=== PATIENT | female | born 1945 | race Caucasian/White ===

== ENCOUNTER 2019-07-28 14:41 | Outpatient (CLI) | payer MEDICARE, OTHER, SELFPAY ==
--- NOTE | 2019-07-28 14:50 | MR_ITS ---
WS: [id number] MRI RIGHT SHOULDER NONCONTRAST TECHNIQUE: Sagittal T2, coronal T1, T2 and proton density imaging. Axial gradient PDE imaging. CLINICAL INFORMATION: SPRAIN OF OTHER PART OF RT SHOULDER COMPARISON: None. FINDINGS: Exam significantly limited due to motion artifact. Moderate degenerative arthritis at the AC joint with downsloping of the acromion. Fluid and edema rig ht AC joint with a small amount of subacromial subdeltoid fluid. Rotator cuff arthropathy. Near compl ete loss of the subacromial space. Chronic thinning and atrophy of the distal supraspinatus. Chronic thinning with partial tear of the supraspinatus distally. Intrasubstance tear at the supraspinatus mu sculotendinous junction with some retraction. Chronic atrophy of the supraspinatus muscle belly. Tend inopathy in the supraspinatus. Chronic appearing atrophy involving the infraspinatus with intact fibers visualized distally. Normal teres minor. Diffuse edema involving the subscapularis with chronic appearing full-thickness tear dis tally. Dislocation of the biceps tendon medial to the bicipital groove. Chronic appearing atrophy of the long head of the biceps tendon. Biceps labral complex appears grossly intact. Degenerative frayin g of the glenoid labrum. MR/MR shoulder RT wo con* [id number] IMPRESSION: 1. Exam limited due to motion artifact. 2. Moderate degenerative arthritis at the AC joint with mild downsloping of th e acromion with loss of the subacromial space. 3. Chronic thinning with complete or near complete tear of the supraspinatus d istally with some tendon retraction. Chronic appearing atrophy of the supra and infraspinatus muscle bellies. 4. Chronic appearing complete tear of the subscapularis tendon distally with d islocation of the biceps tendon medial to the bicipital groove. Chronic atrophy long head of the biceps tendon. 5. Biceps labral complex appears grossly intact.
== END 2019-07-28 14:42 | disposition home or self-care (01) ==
LOC: RADWPI 14:45
PROVIDERS: Family Provider Nurse Practitioner Family; PCP Physician Assistant Medical; Referring Provider Physician Assistant Medical; Visit Provider Orthopaedic Surgery
DX: S43.491A Other sprain of right shoulder joint, initial encounter (principal); X58.XXXA Exposure to other specified factors, initial encounter; M19.011 Primary osteoarthritis, right shoulder; M75.121 Complete rotator cuff tear or rupture of right shoulder, not specified as traumatic
CPT/HCPCS: 73221

== ENCOUNTER 2019-08-20 08:13 | Day surgery (SDC) | payer MEDICARE, OTHER, SELFPAY ==
[2019-08-19 14:57] VITALS: BMI 30.9
[2019-08-20] VITALS (8 sets, daily range): BP systolic 128–143; BP diastolic 56–82; PULSE 56–78; RESP 16–18; TEMP 36.2–36.4; O2SAT 97–99
[2019-08-20] MEDS: sodium chloride 0.9% 1,000 ML 30 ML IV (09:25)
--- NOTE | 2019-08-20 09:49 | ANES.PREANES ---
Pre-Anesthetic Assessment Pre-Anesthetic Assessment: Height/Weight: Height 1.6 m Weight 79.379 kg Temp Pulse Resp BP Pulse Ox 97.1 F L 78 18 135/60 99 08/20/19 09:04 08/20/19 09:04 08/20/19 09:04 08/20/19 09:04 08/20/19 09:04 Preop Diagnosis: Right rotator cuff tear Proposed Procedure: Operation Date: 08/20/19 10:25 Proposed Procedures p Right Shoulder Arthroscopy w/ Rotator Cuff Repair and subacromial decompression [id number] s46.011a s46.111a(Right) - Armando Valdez MD Familial anesthetic complications: None Was Beta Joshua taken within 24 hours: N/A Last intake: Intake Last Liquid Date 08/20/19 Last Liquid Time 06:30 Last Solid Date 08/19/19 Last Solid Time 18:00 Social: Social History: No alcohol and No tobacco Exam: Pre-Anes Outpt Exam: alert, oriented x 3, clear to auscultation bilaterally and regular rate & rhythm Airway: Cervical ROM: Other (painful due to arm right now) MP: 2 Dentition: False Pulmonary: Pulmonary: None reported CV/HEM: CV/HEM: HTN : : None reported Hepatic: Hepatic: None reported GI: GI: GERD Metabolic: Metabolic: Morbid obesity and Thyroid Musc/skel: Musc/skel: None reported Neuropsych: Neuropsych: None reported Anesthetic Plan: ASA status: II Anesthesia: General and Regional (specify below) (interscalne) Meds/Allergies Current Medications: Current Medications Generic Name Dose Route Start Last Admin Trade Name Freq PRN Reason Stop Dose Admin Sodium Chloride 1,000 mls @ 30 ml s/hr 08/20/19 09:00 08/20/19 09:25 Sodium Chloride 0.9% IV 08/21/19 08:59 30 mls/hr .Q24H EDDIE Administration Data Anesthesia Cardiac Studies: No Data to Display
[2019-08-20 10:26] LABS: Basophils % 0.3 %; Eosinophils # 0.1 10^3/uL (0.0-0.8); Eosinophils % 1.3 %; Hematocrit 49.5 % (37.0-47.0); Hemoglobin 15.7 g/dL (11.5-15.3); Lymphocytes # 1.7 10^3/uL (0.8-4.8); Lymphocytes % 28.1 %; Mean Corpuscular HGB Conc 31.7 g/dL (30.0-36.0); Mean Corpuscular Hemoglobin 29.6 pg (28.0-34.0); Mean Corpuscular Volume 93.4 fL (81-99); Mean Platelet Volume 10.9 fL (7.4-10.4); Monocytes # 0.5 10^3/uL (0.2-0.9); Monocytes % 7.6 %; Neutrophils # 3.9 10^3/uL (1.8-7.7); Neutrophils % 62.5 %; Nucleated Red Blood Cells % 0 %; Platelet Count 191 10^3/cmm (130-400); Red Cell Distribution Width 13.3 % (12.1-15.1); White Blood Count 6.2 10^3/uL (4.0-10.0)
[2019-08-20] MEDS: midazolam 1 mg/mL INJ 5 ML 5 MG IVP (10:50)
[2019-08-20 11:02] LABS: Anion Gap 13.1 (5-19); Blood Urea Nitrogen 17 mg/dL (8-23); Calcium 10.1 mg/dL (8.5-10.5); Carbon Dioxide 27 mmol/L (22-29); Chloride 105 mmol/L (98-107); Glucose 105 mg/dL (74-106); Osmolality Calculated 289 mOsm/kg (285-295); Potassium 4.1 mmol/L (3.5-5.1); Sodium 141 mmol/L (136-145)
--- NOTE | 2019-08-20 11:07 | ANES.PROC ---
Anesthesia Procedures Procedure/Date: 08/20/19 Nerve Block ^: Nerve Block 1: Main Anesthesia: general anesthesia Time Out Performed: Yes Consent: requested by attending/covering physician, from patient, risks and benefits reviewed and patient agrees to proceed Nerve block location: interscalene (R) Anesthesia monitors applied: pulse oximetry, BP cuff and oxygen Nerve block position: semi sitting Anesthetic Used: ropivicaine 0.5% (20) and with decadron (4 mg) Ultrasound used to: recognize landmarks and visualize and ID interscalene groove Nerve Stimulator Used?: No Interscalene/Femoral BLK: 2 stimuplex 22 g needle used for position and inplane approach Injection: neg aspiration of heme Patient Tolerated Procedure: well and no complications Complications: none
--- NOTE | 2019-08-20 12:04 | PM.HPUD ---
H&P update H&P Update: DATE OF SURGERY/PROCEDURE: 08/20/19 DATE H&P PERFORMED: 08/05/19 H&P UPDATE INFORMATION: H&P completed within last 30 days and No changes to prior documentation PREOP DIAGNOSIS: Right rotator cuff tear PRIMARY INDICATION FOR PROCEDURE: Pain and weakness after a fall with MRI evidence of tearing of the rotator cuff PLANNED PROCEDURE: Operation Date: 08/20/19 10:25 Proposed Procedures p Right Shoulder Arthroscopy w/ Rotator Cuff Repair and subacromial decompression [id number] s46.011a s46.111a(Right) - Armando Valdez MD Full H&P Medications/Allergies: Current Medications: Current Medications Generic Name Dose Route Start Last Admin Trade Name Freq PRN Reason Stop Dose Admin Sodium Chloride 1,000 mls @ 30 ml s/hr 08/20/19 09:00 08/20/19 09:25 Sodium Chloride 0.9% IV 08/21/19 08:59 30 mls/hr .Q24H EDDIE Administration
--- NOTE | 2019-08-20 15:44 | P.OP_ITS ---
Operative Report Date of procedure: 08/20/19 Pre-op Diagnosis: Right rotator cuff tear Post-op diagnosis: other Post-op Diagnosis: Massive tear right rotator cuff, dislocation right biceps, impingement Post-op Findings: The patient had a large tear of the rotator cuff involving the superior 30% of the subscapularis with dislocation of the biceps of the supraspinatus and the leading edge of the infraspinatus. He had prominent subacromial spurring. No degenerative changes were identified of the glenohumeral joint. Procedure Done: Arthroscopic repair right rotator cuff with bio inductive implant, arthroscopic right subacromial decompression, open subpectoral biceps tenodesis. Pathology: none sent Anesthesia: General and Nerve Block (Interscalene) Estimated blood loss (mL): 20 Complications: None Findings: Patient had a large tear of the rotator cuff involving a retracted tear of the upper third of the subscapularis. She had a tear of her supraspinatus and leading into the infraspinatus nearly to the level of the glenoid. Her biceps tendon was dislocated anteriorly. She had prominent subacromial spurring. Condition: stable Disposition: PACU Procedure: The patient was taken to the operating room after she was given an interscalene block. She was given 2 g of Ancef and positioned, prepped and draped in the lateral position with her right shoulder in 10 and later 15 pounds of traction. A timeout was performed. Shoulder was initially entered through a posterior portal and the glenohumeral joint was entered revealing a very large rotator cuff tear. Additional anterior and anterior lateral portal were made for working portals. Initial attention was focused on bursal tissue in the subacromial space. A Don[employer]ue [employer] Werewolf probe was used to remove bursal tissue. The leading edge of the acromion was outlined. A 5.5 mm acromionizer was used to remove approximately 4 mm of anterior and inferior acromion. Attention was then focused on the rotator cuff in particular the subscapularis. Biceps tendon was seen clearly dislocated across the subscapularis tear. The [employer] Werewolf probe was used to release the biceps from its insertion on the superior labrum for later tenodesis. Section was then accomplished mobilizing the subscapularis. The coracoid was skeletonized adhesions are released from beneath the coracoid. Articular aspect of the subscapularis was mobilized from the anterior glenoid. At the conclusion of debridement the superior corner could be retracted back to its insertion on the lesser tuberosity. An acromion was used to debride the previous footprint of the rotator cuff. Through the anterior portal a 5.5 mm helical anchor was in place. Sutures retracted through the anterior lateral portal and a [employer] first pass suture passer used to shuttle the 2 ultra tape sutures through the leading edge of the subscap approximately 1 cm apart in 8 mm from the tendon edge. A Ultrabraid suture was passed to the central and slightly more medial position. The Ultratape and then the Ultrabraid suture where tied bringing the subscapularis back superiorly and laterally in a modified Canela type of stitch. Attention was then focused on the supraspinatus and infraspinatus. 2 helical L5 0.5 mm anchors were placed in the central debrided footprint, one 1 cm posterior to the subscapularis anchor and a second 1 cm posterior to that. Sutures were passed and identified, modified Canela fashion drawing the rotator cuff down to debrided trough of bone. A slightly more anterior and inferior portal was made. A Donohue [employer] Nephew Regeneten implant was then passed over the repair. It was fixed medially anteriorly and posteriorly with soft tissue lucía and laterally with 2 bone lucía laying over the repair suture line and suture line. Next a small anterior axillary incision was made approximately 3 cm long and dissection was carried down bluntly to the swollen shoulder and into the deltoid to the bicipital groove. The biceps tendon was identified and retracted into the wound. A Q fix anchor was placed in the bone and the sutures passed around the tendon in a luggage tag locking fashion. A second free Ethibond was suture to suture the tendon to the proximal soft tissues. Approximately 3 cm of tendon were divided from scissors. The anterior biceps tenodesis incision was closed with closed with deep 0 Vicryl in a subcutaneous 2-0 Vicryl. And a stable. Portals were closed with interrupted Prolene sutures. Sterile dressings were applied. The patient was placed in an abduction pillow, extubated, and taken to recovery room in stable condition.
--- NOTE | 2019-08-20 16:04 | SUR.PHASEI ---
1546- RECEIVED PATIENT IN PACU FROM OR VIA [facility]. RESP ARE EVEN AND NONLABORED. SIMPLE MASK APPLIED AT 6LPM, SAT 98%. LUE IS WARM TO TOUCH WITH CAP REFILL <3 SECONDS. DRESSING DRY AND INTACT WITH IMMOBILIZER IN PLACE. NO S/S PAIN OR NAUSEA
== END 2019-08-20 17:25 | disposition home or self-care (01) ==
PROVIDERS: Family Provider Nurse Practitioner Family; PCP Physician Assistant Medical; Visit Provider Orthopaedic Surgery
PROC: (CPT 29805; principal; 2019-08-20 10:25)
DX: M75.101 Unspecified rotator cuff tear or rupture of right shoulder, not specified as traumatic (principal); M25.811 Other specified joint disorders, right shoulder; I10 Essential (primary) hypertension; K21.9 Gastro-esophageal reflux disease without esophagitis; E66.01 Morbid (severe) obesity due to excess calories; Z68.31 Body mass index [BMI] 31.0-31.9, adult
CPT/HCPCS: 29826; 29827; 29828; 12345; 36415; 80048; 85025; 96374; C1713; J0690; J1100; J2001; J2250; J2704; J2795; J3010; J3490; J7030

== ENCOUNTER 2019-09-29 06:00 | Outpatient (RCR) | payer MEDICARE, OTHER, SELFPAY | END 2019-10-21 23:59 | disposition home or self-care (01) | LOC: WPT 06:00 | PROVIDERS: Family Provider Nurse Practitioner Family; PCP Physician Assistant Medical; Referring Provider Orthopaedic Surgery; Visit Provider Orthopaedic Surgery | DX: Z47.89 Encounter for other orthopedic aftercare (principal) | CPT/HCPCS: 97110; 97112; 97150; 97162 ==

== ENCOUNTER 2019-10-22 06:00 | Outpatient (RCR) | payer MEDICARE, OTHER, SELFPAY | END 2019-11-20 23:59 | disposition home or self-care (01) | LOC: WPT 06:00 | PROVIDERS: Family Provider Nurse Practitioner Family; PCP Physician Assistant Medical; Referring Provider Orthopaedic Surgery; Visit Provider Orthopaedic Surgery | DX: Z47.89 Encounter for other orthopedic aftercare (principal); S46.011D Strain of muscle(s) and tendon(s) of the rotator cuff of right shoulder, subsequent encounter | CPT/HCPCS: 97110; 97164 ==

== ENCOUNTER 2019-11-21 06:00 | Outpatient (RCR) | payer MEDICARE, OTHER, SELFPAY | END 2019-12-21 23:59 | disposition home or self-care (01) | LOC: WPT 06:00 | PROVIDERS: PCP Physician Assistant Medical; Referring Provider Orthopaedic Surgery; Visit Provider Orthopaedic Surgery | DX: Z47.89 Encounter for other orthopedic aftercare (principal); Z98.890 Other specified postprocedural states | CPT/HCPCS: 97110; 97112; 97140 ==

== ENCOUNTER 2019-12-22 06:00 | Outpatient (RCR) | payer MEDICARE, OTHER, SELFPAY | END 2020-01-20 23:59 | disposition home or self-care (01) | LOC: WPT 06:00 | PROVIDERS: PCP Physician Assistant Medical; Visit Provider Orthopaedic Surgery | DX: Z47.89 Encounter for other orthopedic aftercare (principal); Z98.890 Other specified postprocedural states | CPT/HCPCS: 97110; 97140; 97150; 97530 ==

== ENCOUNTER → 2022-07-19 13:09 | Outpatient (BNVA) | payer MEDICARE, OTHER, SELFPAY | PROVIDERS: PCP Physician Assistant Medical; Visit Provider Specialist | DX: M25.512 Pain in left shoulder (principal); M19.012 Primary osteoarthritis, left shoulder; Z96.611 Presence of right artificial shoulder joint | CPT/HCPCS: 20610; 73030; 99204; J1100; J2795; J3301 ==

== ENCOUNTER → 2022-12-04 12:49 | Outpatient (BNVA) | payer MEDICARE, OTHER, SELFPAY | PROVIDERS: PCP Physician Assistant Medical; Visit Provider Specialist | DX: M19.012 Primary osteoarthritis, left shoulder (principal) | CPT/HCPCS: 99214 ==

== ENCOUNTER 2023-01-05 11:16 | Outpatient (CLI) | payer MEDICARE, OTHER, SELFPAY ==
--- NOTE | 2023-01-05 | MR_ITS ---
WS: [id number] MRI LEFT SHOULDER NONCONTRAST TECHNIQUE: Sagittal T2, coronal T1, T2 and proton density imaging. Axial gradient PDE imaging. CLINICAL INFORMATION: pain radiating down left arm COMPARISON: None. FINDINGS: Moderate degenerative arthritis LEFT AC joint. Moderate downsloping of the acromion subacromial spurr ing. Impingement on the distal supraspinatus. Small amount of subacromial subdeltoid fluid. Narrowing of the subacromial space. Tendinopathy in the distal supraspinatus. Small insertional tear distal supraspinatus. No tendon retr action. Normal infraspinatus. Normal teres minor. Chronic thinning of the subscapularis tendon distal ly likely due to chronic tear. Medial subluxation of the biceps tendon at the bicipital groove. Incre ased T2 signal abnormality with partial intrasubstance tear involving the proximal biceps tendon exte nding into the adjacent proximal intra-articular biceps tendon. Otherwise Intra-articular biceps tend on appears intact. Moderate degenerative narrowing at the glenohumeral articulation. MR/MR shoulder LT wo con* [id number] IMPRESSION: 1. Moderate degenerative arthritis AC joint with downsloping acromion with imp ingement on the distal supraspinatus. Fluid and edema in the AC joint. 2. Narrowing of the subacromial space with tendinopathy and a small insertiona l tear distally. No tendon retraction. 3. Infraspinatus and teres minor are normal. 4. Chronic thinning of the subscapularis with chronic appearing distal atrophy likely due to chronic tear 5. Medial subluxation of the biceps tendon from the bicipital groove with int rasubstance tear extending into the proximal intra-articular biceps tendon. 6. Intra-articular biceps tendon otherwise appears intact.
== END 2023-01-05 11:17 | disposition home or self-care (01) ==
LOC: RAD 11:22
PROVIDERS: PCP Physician Assistant Medical; Visit Provider Specialist
DX: M19.012 Primary osteoarthritis, left shoulder (principal)
CPT/HCPCS: 73221

== ENCOUNTER → 2023-01-15 14:55 | Outpatient (BNVA) | payer MEDICARE, OTHER, SELFPAY | PROVIDERS: PCP Physician Assistant Medical; Visit Provider Specialist | DX: M75.42 Impingement syndrome of left shoulder (principal); M19.012 Primary osteoarthritis, left shoulder | CPT/HCPCS: 99214 ==

== ENCOUNTER 2023-02-02 09:56 | Day surgery (SDC) | payer MEDICARE, OTHER, SELFPAY ==
[2023-02-02 10:31] VITALS: BP 137/82; PULSE 71; RESP 16; TEMP 36.3; O2SAT 99
[2023-02-02] MEDS: gabapentin 300 mg Capsule PO (10:55)
[2023-02-02] MEDS: acetaminophen 1,000 MG/100 ML PIGGYBACK 400 MG IV (10:55)
[2023-02-02] MEDS: sodium chloride 0.9% 1,000 ML 30 ML IV (10:56)
[2023-02-02 11:05] LABS: Basophils % 0.2 %; Eosinophils # 0.1 10^3/uL (0.0-0.8); Eosinophils % 1.4 %; Hematocrit 28.5 % (37.0-47.0); Hemoglobin 8.7 g/dL (11.5-15.3); Lymphocytes # 1.3 10^3/uL (0.8-4.8); Lymphocytes % 25.4 %; Mean Corpuscular HGB Conc 30.5 g/dL (30.0-36.0); Mean Corpuscular Hemoglobin 30.6 pg (28.0-34.0); Mean Corpuscular Volume 100.4 fl (81-99); Mean Platelet Volume 9.7 fL (7.4-10.4); Monocytes # 0.3 10^3/uL (0.2-0.9); Monocytes % 6.2 %; Neutrophils # 3.31 10^3/uL (1.8-7.7); Neutrophils % 66.6 %; Nucleated Red Blood Cells % 0 %; Platelet Count 94 10^3/cmm (130-400); Red Blood Count 2.84 10^6/uL (4.1-5.3); Red Cell Distribution Width 13.2 % (12.1-15.1)
--- NOTE | 2023-02-02 11:12 | W.PM.OPSUD ---
Surgery/Procedure H&P Update DATE OF PROCEDURE: February 02, 2023 DATE H&P PERFORMED: 01/15/23 H&P UPDATE INFORMATION: I have reviewed H&P completed within last 30 days, I have examined patient prior to procedure, No changes to prior documentation and H&P is in [facility] EMR on date indicated PRIMARY INDICATION FOR PROCEDURE: MRI was obtained at [facility] on January 05, 2023.? This was a noncontrast MRI of the left shoulder read by Dr. Whitlock.? Findings on this study include moderate degenerative arthritis of the left acromioclavicular joint with moderate downsloping of the acromion and subacromial spurring.? There is impingement on the distal supraspinatus with a small amount of subacromial/subdeltoid fluid.? There is narrowing of the subacromial space as well.? There is tendinopathy in the distal supraspinatus tendon with a small distal supraspinatus insertional tendon tear, but there is no tendon retraction.? The infraspinatus and teres minor are normal, and there is chronic thinning of the subscapularis tendon distally likely secondary to chronic tear.? There is medial subluxation of the biceps tendon at the bicipital groove with partial intrasubstance tear involving the proximal biceps tendon, but the intra-articular sections is intact.? There is moderate narrowing at the glenohumeral joint in addition to the moderate degenerative osteoarthritic change at the acromioclavicular joint. PLANNED PROCEDURE: Operation Date: 02/02/23 12:25 Proposed Procedures p : LEFT SHOULDER OPEN ACROMIOPLASTY WITH DISTAL CLAVICLE RESECTION AND POSSIBLE ROTATOR CUFF REPAIR. 19556 50059 ,M75.100 M19.019(Left) - Tyesha Aly MD s Distal Clavicle Resection(Left) - Tyesha Aly MD s poss rotator cuff repair(Left) - Tyesha Aly MD Related Problem List Diagnoses (1) Impingement syndrome of left shoulder: (2) Arthritis of left acromioclavicular joint:
--- NOTE | 2023-02-02 11:15 | ANES.PREANE2 ---
Pre-Anesthetic Assessment Height/Weight: Height 1.63 m Weight 79.379 kg Temp Pulse Resp BP Pulse Ox O2 Del Method 97.3 F L 71 16 137/82 99 Room Air 02/02/23 10:31 02/02/23 10:31 02/02/23 10:31 02/02/23 10:31 02/02/23 10:31 02/02/23 10:35 Operation Date: 02/02/23 12:25 Proposed Procedures p : LEFT SHOULDER OPEN ACROMIOPLASTY WITH DISTAL CLAVICLE RESECTION AND POSSIBLE ROTATOR CUFF REPAIR. 41252 13844 ,M75.100 M19.019(Left) - Tyesha Aly MD s Distal Clavicle Resection(Left) - Tyesha Aly MD s poss rotator cuff repair(Left) - Tyesha Aly MD Familial anesthetic complications: None Last intake: Intake Last Liquid Date 02/01/23 Last Liquid Time 23:00 Last Solid Date 02/01/23 Last Solid Time 19:00 Social No alcohol and No tobacco Exam alert, oriented x 3, clear to auscultation bilaterally and regular rate & rhythm Airway Mallampati: Class II Dentition: false CV/HEM Hypertension Metabolic Thyroid Disease Anesthetic Plan ASA status: 2 Anesthesia: General and Regional (specify below) Risk of > 500 ml blood loss (7ml/kg in children): No Medications/Allergies Home Medications Medication Instructions Recorded Confirmed Last Taken Type levothyroxine 88 mcg capsule 75 mcg PO ONCE 08/05/19 02/01/23 02/02/23 History losartan 100 mg tablet 50 mg PO DAILY 08/05/19 02/01/23 02/02/23 History azelastine 137 mcg (0.1 %) nasal 1 spray intranasal BID 09/07/21 02/01/23 02/01/23 History spray aerosol bupropion HCl 150 mg tablet,12 hr 150 mg PO QAM 09/07/21 02/01/23 02/01/23 History sustained-release (Wellbutrin SR) Allergies Allergy/AdvReac Type Severity Reaction Status Date / Time aspirin Allergy Mild ALGY-Hives Verified 02/01/23 11:16 Current Medications Generic Name Dose Route Start Last Admin Trade Name Freq PRN Reason Stop Dose Admin Sodium Chloride 1,000 mls @ 30 mls/hr 02/02/23 10:15 02/02/23 10:56 Sodium Chloride 0.9% IV 02/03/23 10:14 30 mls/hr .Q24H EDDIE Administration PFSH Anesthesia Social History Smoking and tobacco status: never smoked Data Anesthesia 02/02/23 10:55 02/02/23 10:55 Short CBC 02/02/23 Range/Units 10:55 WBC 5.0 (4.0-10.0) 10^3/uL Hgb 8.7 L (11.5-15.3) g/dL Hct 28.5 L (37.0-47.0) % MCV 100.4 H (81-99) fl Plt Count 94 L (130-400) 10^3/cmm Neut % (Auto) 66.6 % Neut # (Auto) 3.31 (1.8-7.7) 10^3/uL Cardiac Studies: No Data to Display
[2023-02-02 11:20] LABS: Anion Gap 9.4 (5-19); Blood Urea Nitrogen 13 mg/dL (8-23); Carbon Dioxide 16 mmol/L (22-29); Chloride 123 mmol/L (98-107); Glucose 53 mg/dL (65-115); Osmolality Calculated 300 mOsm/kg (285-295); Sodium 146 mmol/L (136-145)
--- NOTE | 2023-02-02 11:22 | ANES.PROC ---
Anesthesia Procedures Procedure/Date: 02/02/23 Nerve Block ^: Nerve Block 1: Main Anesthesia: general anesthesia Time Out Performed: Yes Consent: requested by attending/covering physician, from patient, from other, risks and benefits reviewed and patient agrees to proceed Nerve block location: interscalene (L) Anesthesia monitors applied: pulse oximetry, EKG, BP cuff and oxygen Nerve block position: semi sitting Anesthetic Used: ropivicaine 0.5% (20 ml) and with decadron (3 mg) Ultrasound used to: recognize landmarks, visualize and ID brachial plexus and visualize and ID interscalene groove Nerve Stimulator Used?: No Interscalene/Femoral BLK: 2 stimuplex 22 g needle used for position and inplane approach, visualize local anesthetic spread and no vascular puncture identified Injection: neg aspiration of heme Patient Tolerated Procedure: well and no complications Complications: none
[2023-02-02 11:23] LABS: Potassium 2.4 mmol/L (3.5-5.1)
[2023-02-02 11:24] LABS: Calcium 4.8 mg/dL (8.5-10.5)
--- NOTE | 2023-02-02 11:30 | ECG_ITS ---
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 Measurements Intervals [place] Rate: 67 P: 26 WA: 153 QRS: 2 QRSD: 83 T: 67 QT: 377 QTc: 400 Interpretive Statements SINUS RHYTHM NONSPECIFIC T-WAVE ABNORMALITY No previous ECG available for comparison Electronically Signed On 02-02-2023 11:32:56 CDT by Mi Croft M.D. [email or web address]
--- NOTE | 2023-02-02 11:53 | PM.MISC ---
Miscellaneous Note Note: Patient lab results reveal critical potassium and calcium. Additionally patient has new-onset anemia and thrombocytopenia, all of undetermined etiology. Patient was sent to ER to correct critical deficiencies. Shoulder placed in sling and had discussion with patient that although block was intended for postsurgical pain, it will at least provide temporary relief from her chronic pain during her admission. Patient had no further questions or concerns.
[2023-02-02 12:02] LABS: Glucose Point of Care 99 mg/dL (70-110)
--- NOTE | 2023-02-03 01:22 | PM.MISC ---
Miscellaneous Note Purpose of Documentation: Cancellation of surgery Note: Patient presented to the hospital for left shoulder surgery as noted above. Labs were drawn as ordered by anesthesia. When the labs returned, there are multiple irregularities including critical values of potassium and calcium. The patient surgical procedure was canceled and she was transported to the emergency department for further evaluation and correction of these abnormal lab values. Upon repeat laboratory there, patient was found to have normal results. After discussion with the patient, anesthesia, in the emergency room, we elected to proceed with the surgical intervention. That is included under a separate hospital encounter.
== END 2023-02-02 12:07 | disposition home or self-care (01) ==
LOC: OR 09:58
PROVIDERS: Anesthesiology; PCP Registered Nurse; Visit Provider Specialist
PROC: (CPT 23130; principal; 2023-02-02 12:15)
PROC: (CPT 23120; 2023-02-02 12:15)
DX: M75.102 Unspecified rotator cuff tear or rupture of left shoulder, not specified as traumatic (principal); M19.012 Primary osteoarthritis, left shoulder; M75.42 Impingement syndrome of left shoulder; I10 Essential (primary) hypertension; E03.9 Hypothyroidism, unspecified
CPT/HCPCS: 36415; 36416; 80048; 82962; 85025; 93005; J0131; J1100; J2371; J2405; J2704; J2795; J3010; J3490; J7030

== ENCOUNTER 2023-02-02 12:13 | Day surgery (SDC) | payer MEDICARE, OTHER, SELFPAY ==
[2023-02-02] VITALS (13 sets, daily range): BP systolic 113–138; BP diastolic 51–88; PULSE 61–80; RESP 14–18; TEMP 35.9–36.4; O2SAT 95–100
[2023-02-02 13:21] LABS: Basophils % 0.3 %; Eosinophils # 0.1 10^3/uL (0.0-0.8); Eosinophils % 1.1 %; Hemoglobin 14.5 g/dL (11.5-15.3); Lymphocytes # 1.2 10^3/uL (0.8-4.8); Lymphocytes % 16.5 %; Mean Corpuscular HGB Conc 30.9 g/dL (30.0-36.0); Mean Corpuscular Hemoglobin 30.6 pg (28.0-34.0); Mean Corpuscular Volume 99.2 fl (81-99); Mean Platelet Volume 9.8 fL (7.4-10.4); Monocytes # 0.2 10^3/uL (0.2-0.9); Monocytes % 3.2 %; Neutrophils # 5.88 10^3/uL (1.8-7.7); Neutrophils % 78.6 %; Nucleated Red Blood Cells % 0 %; Platelet Count 148 10^3/cmm (130-400); Red Blood Count 4.74 10^6/uL (4.1-5.3); Red Cell Distribution Width 13.2 % (12.1-15.1); White Blood Count 7.5 10^3/uL (4.0-10.0)
[2023-02-02 13:43] LABS: Alanine Aminotransferase 9 U/L (0-33); Albumin Level 3.9 g/dL (3.5-5.2); Alkaline Phosphatase 104 U/L (35-105); Anion Gap 14.3 (5-19); Aspartate Amino Transferase 16 U/L (0-32); Blood Urea Nitrogen 19 mg/dL (8-23); Carbon Dioxide 24 mmol/L (22-29); Chloride 105 mmol/L (98-107); Globulin 3.1 g/dL (1.3-4.6); Glucose 102 mg/dL (65-115); Osmolality Calculated 290 mOsm/kg (285-295); Potassium 4.3 mmol/L (3.5-5.1); Sodium 139 mmol/L (136-145); Total Bilirubin 0.5 mg/dL (0.15-1.2)
--- NOTE | 2023-02-02 13:54 | ED_ITS ---
HPI - Recheck/Abnormal Lab/Rx General: Chief Complaint: Recheck/Abnormal Lab/Rx Stated Complaint: low potassium Time Seen by Provider: 02/02/23 12:48 History of Present Illness: 77-year-old female presented emergency room today with abnormal labs. According to patient she was scheduled for left shoulder surgery this morning and 3 upper lab was done. Labs showed abnormal potassium and calcium and glucose level. Patient was sent to emergency room for verification and treatment. Upon present emergency room, patient appeared to be awake without any acute distress. She denies any chest pain, shortness of breath, nausea, vomiting or diarrhea. Review of Systems General: Reports: 10 or more systems reviewed and unremarkable except in HPI and below Card: Denies: chest pain, palpitations, irregular heart rhythm, swelling of feet/ankles, lightheadedness, syncope, dyspnea on exertion, orthopnea, leg pain with exertion or acrocyanosis Skin/Breast: Denies: rash, pruritus, erythema, photosensitivity, skin pain, skin tenderness, skin swelling, sores, new lesions, changing lesions, non- healing lesions, lesions, changes in skin color, jaundice or dry skin PFSH ED PFSH: Social History Smoking and tobacco status: never smoked Physical Exam Const: COMMON NORMALS: no acute distress, average body habitus, patient oriented x3, no limitations, healthy appearing, alert and well nourished Neck/C-Spine: COMMON NORMALS: no JVD Chest: COMMONS NORMALS: normal inspection of the chest, normal palpation of entire chest wall, normal inspection of the breasts and normal palpation of the breasts Breast/axilla inspection: Yes normal inspection of the breasts BREAST/AXILLA PALPATION: Yes normal palpation of the breasts Resp: COMMON NORMALS: normal respiratory effort, No retractions, No use of accessory muscles, clear to auscultation bilaterally and percussion normal AUSCULTATION: clear to auscultation bilaterally PERCUSSION: percussion normal Cardio: COMMON NORMALS: no JVD, regular rate, regular rhythm, S1 normal heart sound present, S2 normal heart sound present, No gallops present (Cardio), No clicks present (Cardio), No murmurs present (Cardio), No rub (Cardio) and Peripheral pulses 2+ throughout RATE: regular rate RHYTHM: regular rhythm HEART SOUNDS: S1 normal heart sound present and S2 normal heart sound present PERIPHERAL PULSES: Peripheral pulses 2+ throughout Extremity: COMMON NORMALS: normal to inspection, full ROM, capillary refill normal, no joint enlargement, no clubbing, cyanosis or edema, no calf tenderness and no pedal edema NARRATIVE EXTREMITY EXAM: Left shoulder/arm in sling. Pain with some mild rotation. Neuro: COMMON NORMALS: patient oriented x3 SENSORIUM/ORIENTATION: Yes alert Course Vital Signs: Vital signs: Vital Signs Pulse Rate 77 02/02/23 12:42 Respiratory Rate 16 02/02/23 12:42 Blood Pressure 121/86 02/02/23 12:42 Pulse Oximetry 100 02/02/23 12:42 Oxygen Delivery Me thod Room Air 02/02/23 12:42 MDM - Recheck/Abnormal Lab/Rx Medical Decision Making Patient was made comfortable emergency room. Lab done and I discussed the lab finding with patient. She has remained stable without any acute distress. Differential Diagnosis Likely encounter for medication refill (Electrolyte abnormalities, diarrhea, nausea vomiting) Lab Data 02/02/23 13:12 02/02/23 13:12 Laboratory Results WBC 7.5 10^3/uL (4.0-10.0) 02/02/23 13:12 RBC 4.74 10^6/uL (4.1-5.3) 02/02/23 13:12 Hgb 14.5 g/dL (11.5-15.3) D 02/02/23 13:12 Hct 47.0 % (37.0-47.0) D 02/02/23 13:12 MCV 99.2 fl (81-99) H 02/02/23 13:12 MCH 30.6 pg (28.0-34.0) 02/02/23 13:12 MCHC 30.9 g/dL (30.0-36.0) 02/02/23 13:12 RDW 13.2 % (12.1-15.1) 02/02/23 13:12 Plt Count 148 10^3/cmm (130-400) D 02/02/23 13:12 MPV 9.8 fL (7.4-10.4) 02/02/23 13:12 Neut % (Auto) 78.6 % 02/02/23 13:12 Lymph % (Auto) 16.5 % 02/02/23 13:12 [place] % (Auto) 3.2 % 02/02/23 13:12 Eos % (Auto) 1.1 % 02/02/23 13:12 Baso % (Auto) 0.3 % 02/02/23 13:12 Neut # (Auto) 5.88 10^3/uL (1.8-7.7) 02/02/23 13:12 Lymph # (Auto) 1.2 10^3/uL (0.8-4.8) 02/02/23 13:12 [place] # (Auto) 0.2 10^3/uL (0.2-0.9) 02/02/23 13:12 Eos # (Auto) 0.1 10^3/uL (0.0-0.8) 02/02/23 13:12 Baso # (Auto) 0.0 10^3/uL (0.0-0.1) 02/02/23 13:12 Nucleated RBC % (auto) 0 % 02/02/23 13:12 Nucleated RBCs # 0.0 /100WBC 02/02/23 13:12 Sodium 139 mmol/L (136-145) 02/02/23 13:12 Potassium 4.3 mmol/L (3.5-5.1) 02/02/23 13:12 Chloride 105 mmol/L (98-107) 02/02/23 13:12 Carbon Dioxide 24 mmol/L (22-29) 02/02/23 13:12 Anion Gap 14.3 (5-19) 02/02/23 13:12 BUN 19 mg/dL (8-23) 02/02/23 13:12 Creatinine 1.0 mg/dL (0.5-0.9) H 02/02/23 13:12 GFR Calculation Not Reportable 02/02/23 13:12 Glucose 102 mg/dL (65-115) 02/02/23 13:12 Calculated Osmolality 290 mOsm/kg (285-295) 02/02/23 13:12 Calcium 9.0 mg/dL (8.5-10.5) 02/02/23 13:12 Total Bilirubin 0.5 mg/dL (0.15-1.2) 02/02/23 13:12 AST 16 U/L (0-32) 02/02/23 13:12 ALT 9 U/L (0-33) 02/02/23 13:12 Alkaline Phosphatase 104 U/L (35-105) 02/02/23 13:12 Total Protein 7.0 g/dL (6.6-8.7) 02/02/23 13:12 Albumin 3.9 g/dL (3.5-5.2) 02/02/23 13:12 Globulin 3.1 g/dL (1.3-4.6) 02/02/23 13:12 Discharge Plan Discharge Patient Disposition: Home Clinical Impression: Abnormal blood electrolyte level Condition: Stable Prescriptions: No Action losartan 100 mg tablet 50 mg PO DAILY levothyroxine 88 mcg capsule 75 mcg PO ONCE bupropion HCl [Wellbutrin SR] 150 mg tablet sustained-release 12 hr 150 mg PO QAM azelastine 137 mcg (0.1 %) aerosol,spray 1 spray intranasal BID Rx Instructions: administer into each nostril Discharge Orders: Discharge ED (Routine); Ordered 02/02/23 Ordered By: Moy Mcconnell Referrals: Bibi Cruz [Primary Care Provider] - Discharge Diet: Advance as tolerated Discharge Activity: Resume usual activity Patient Instructions: Opioid Safety, Pain Management Coding Level of Care Code ED Core [employer] Tender for Terence Aguayo
[2023-02-02 15:16] LABS: Hematocrit 45.4 % (37.0-47.0); Hemoglobin 14.1 g/dL (11.5-15.3)
--- NOTE | 2023-02-02 15:17 | PC.NURSE ---
Pt returned from ER, reports she drank apple juice at 1200, Dr Kasper aware, Okay Pt denies any pain, reports numbness to left arm from block, able to wiggle fingers. H&H drawn per anesthesia-waiting for results. IV flushed. VSS.
[2023-02-02] MEDS: sodium chloride 0.9% 1,000 ML 30 ML IV (15:30)
--- NOTE | 2023-02-02 15:42 | P.OP_ITS ---
Operative Report Date of procedure: February 02, 2023 Pre-op diagnosis: Left shoulder impingement, acromioclavicular joint degenerative osteoarthritis, and possible rotator cuff tear. Post-op diagnosis: Left shoulder impingement, acromioclavicular joint degenerative osteoarthritis, and possible rotator cuff tear. Post-op findings: Significant thinning of the supraspinatus with parallel tears anteriorly and posteriorly. Significant impingement. Severe osteoarthritic change with osteophytes of the acromioclavicular joint Procedure done: Left shoulder rotator cuff repair with acromioplasty and distal clavicle resection Implants: None, repair was accomplished primarily of and vertically along the anterior and posterior borders of the supraspinatus tendon. Surgeon: Tyesha Aly [employer] Routeman: [facility] operating room technicians Anesthesia: General (Intubated, ASA 2) Estimated blood loss (mL): 10 IV fluids (mL): 300 Urine output (mL): 0 (No Warner) Complications: None Findings: Severe impingement with severe degenerative osteoarthritic change and osteophyte formation around the acromioclavicular joint. Large thinning of the distal supraspinatus with vertical tearing anteriorly and posteriorly. Condition: stable Disposition: PACU (Then discharged to home) Brief History: This 77-year-old woman presented to my office with complaints of left shoulder pain. In spite of multiple conservative therapies, she continued to have increasing pain. She did not feel that the conservative measures including inje ctions were helping her any longer. She wished to discuss surgical options. MRI demonstrated the degenerative osteoarthritis of the acromioclavicular joint with downsloping and subacromial spurring as well as the impingement. Additionally, there was noted to be a small distal supraspinatus insertional tear on MRI. After this, the patient wished to proceed with operative intervention. Risks and complications were discussed with her. Consents were signed, questions were answered, and she was scheduled for open rotator cuff repair with acromioplasty and distal clavicle resection. Procedure: The patient was brought to the operating theater, was administered a general anesthesia, intubated, ASA 2 after she was transferred to the operating room table. The patient was placed in a beachchair position and subsequently the left upper extremity was prepped and draped in the usual fashion utilizing DuraPrep. The arm was draped free. A surgical pause was performed prior to commencement of the surgical procedure. At the time of the surgical pause, we confirmed the site and side of surgery as well as administration of appropriate preoperative antibiotics Ancef 2 g. MRI was also reviewed at that time. Following the surgical pause, an incision was made at approximately the level of the acromioclavicular joint extending across the anterolateral corner of the acromion and distally as necessary. Care was taken to avoid injury to the axillary nerve by limiting the distal extent of the incision. Dissection continued through skin and soft tissues using a scalpel. Hemostasis was obtained using electrocautery. Soft tissues were elevated off the acromion. An acromioplasty was then accomplished using a combination of a saw and a power r asp. With this, we were able to remove compression caused by the acromion. The rotator cuff was then evaluated to look for tears. There was a large tear involving the entire distal supraspinatus. For the most part, it was thinned and still continuous to the tuberosity. Anteriorly and posteriorly, however, there were vertical tears through which a Simpson could be placed into the joint. The remainder of the rotator cuff tear was evaluated, and no further tears were identified. The edges were freshened using a scalpel. Repair was accomplished using 0 Ethibond. The tear orientation was noted to be vertical x2, and repair was accomplished along the anterior and posterior tear. The anterior tear was the larger of the 2. After the rotator cuff had been thus addressed, the shoulder was placed through further range of motion to assure there was no further evidence of rotator cuff tear. The acromioclavicular joint was exposed. A saw was then used to resect the distal clavicle without difficulty. The undersurface of the clavicle was palpated and was further debrided with a rongeur and rasp. Additionally, the acromial side of the joint was addressed using a rasp and rongeur. A power rasp was used to further smooth the area along the superficial aspect of the clavicle. When this was felt to be adequately resected, the wound was irrigated. Attention was then directed to closure. The wound was irrigated and closure was accomplished with 0 Vicryl in the capsular tissues overlying the acromioclavicular joint area as well as over the acromion and down into the deltoid muscle. 3-0 Monocryl was used to close the subcutaneous tissues followed by 4-0 Monocryl subcuticular closure. This was followed by Dermabond, Steri-Strips, and OpSite. The patient was placed in a shoulder immobilizer and was returned to the recovery room in satisfactory condition. The patient will be discharged to home to follow-up with me in the office as scheduled. There were no complications and no specimens. Related Problem List Diagnoses (1) Left rotator cuff tear: (2) Impingement syndrome of left shoulder: (3) Arthritis of left acromioclavicular joint:
[2023-02-02] MEDS: ceFAZolin 2,000 MG in sodium chloride 0.9% (plus) 50 ML 100 MG IV (15:45)
[2023-02-02] MEDS: ceFAZolin 1,000 mg SDV 1000 MG IRRIGATION (16:34)
--- NOTE | 2023-02-02 17:25 | PC.NURSE ---
Pt arrived to PACU, awake, resting comfortably, denies any pain or nausea at this time. O2 at 2L/min via NC. Dressing to left shoulder C/D/I, left hand p/w/d, cap refill < 3 seconds, good radial pulse noted, immobilizer in place. HOB elevated.
--- NOTE | 2023-02-02 18:10 | ANE.PACU2 ---
Inpatient post-anesthesia follow up: Airway intact: Yes Vital signs: Temperature 97.1 F Pulse Rate 74 Respiratory Rate 16 Blood Pressure 113/62 Pulse Oximetry 98 Oxygen Delivery Me thod Room Air Oxygen Flow Rate 2 Fraction of Inspir ed Oxygen Hydration adequate: Yes Nausea and vomiting: No Pain level: 1 Mental status: Baseline
== END 2023-02-02 18:36 | disposition home or self-care (01) ==
LOC: ER 14:26 → OR 15:19
PROVIDERS: Anesthesiology; Emergency Provider Family Medicine; PCP Registered Nurse; Visit Provider Specialist
PROC: (CPT 23130; principal; 2023-02-02 14:35)
PROC: (CPT 23120; 2023-02-02 14:35)
PROC: (CPT 23120; 2023-02-02 14:35)
DX: M75.42 Impingement syndrome of left shoulder (principal); M19.012 Primary osteoarthritis, left shoulder; M75.102 Unspecified rotator cuff tear or rupture of left shoulder, not specified as traumatic; I10 Essential (primary) hypertension; E03.9 Hypothyroidism, unspecified; R79.9 Abnormal finding of blood chemistry, unspecified
CPT/HCPCS: 23120; 23130; 23412; 36415; 36416; 80048; 80053; 82962; 85014; 85018; 85025; 93005; J0131; J0690; J1100; J2371; J2405; J2704; J2710; J2795; J3010; J3490; J7030

== ENCOUNTER → 2023-02-14 14:09 | Outpatient (BNVA) | payer MEDICARE, OTHER, SELFPAY | PROVIDERS: PCP Registered Nurse; Visit Provider Specialist | DX: M75.42 Impingement syndrome of left shoulder (principal); M19.012 Primary osteoarthritis, left shoulder; M75.102 Unspecified rotator cuff tear or rupture of left shoulder, not specified as traumatic | CPT/HCPCS: 73030; 99024 ==

== ENCOUNTER → 2023-03-14 14:12 | Outpatient (BNVA) | payer MEDICARE, OTHER, SELFPAY | PROVIDERS: PCP Registered Nurse; Visit Provider Specialist | DX: M75.122 Complete rotator cuff tear or rupture of left shoulder, not specified as traumatic (principal); M75.42 Impingement syndrome of left shoulder; M19.012 Primary osteoarthritis, left shoulder | CPT/HCPCS: 99024 ==

== ENCOUNTER 2023-03-29 13:02 | Outpatient (RCR) | payer MEDICARE, OTHER, SELFPAY | END 2023-04-21 23:59 | disposition home or self-care (01) | LOC: WPT 13:02 | PROVIDERS: Visit Provider Specialist | DX: Z98.890 Other specified postprocedural states (principal) | CPT/HCPCS: 97110; 97112; 97162; 97530 ==

== ENCOUNTER 2023-04-22 06:00 | Outpatient (RCR) | payer MEDICARE, OTHER, SELFPAY | END 2023-05-22 23:59 | disposition home or self-care (01) | LOC: WPT 06:00 | PROVIDERS: Visit Provider Specialist | DX: Z47.89 Encounter for other orthopedic aftercare (principal) | CPT/HCPCS: 97110; 97112; 97530 ==

== ENCOUNTER → 2023-05-09 14:42 | Outpatient (BNVA) | payer MEDICARE, OTHER, SELFPAY | PROVIDERS: Visit Provider Specialist | DX: S46.212A Strain of muscle, fascia and tendon of other parts of biceps, left arm, initial encounter (principal); M75.122 Complete rotator cuff tear or rupture of left shoulder, not specified as traumatic; M19.012 Primary osteoarthritis, left shoulder; M75.42 Impingement syndrome of left shoulder; X58.XXXA Exposure to other specified factors, initial encounter | CPT/HCPCS: 99214 ==

== ENCOUNTER 2023-05-23 06:00 | Outpatient (RCR) | payer MEDICARE, OTHER, SELFPAY | END 2023-06-21 23:59 | disposition home or self-care (01) | LOC: WPT 06:00 | PROVIDERS: Visit Provider Specialist | DX: Z47.89 Encounter for other orthopedic aftercare (principal) | CPT/HCPCS: 97110; 97112; 97530 ==

== ENCOUNTER → 2023-06-06 14:28 | Outpatient (BNVA) | payer MEDICARE, OTHER, SELFPAY | PROVIDERS: PCP Registered Nurse; Visit Provider Nurse Practitioner | DX: M17.12 Unilateral primary osteoarthritis, left knee; Z46.89 Encounter for fitting and adjustment of other specified devices; M25.562 Pain in left knee | CPT/HCPCS: 20610; 73560; 73565; 97760; 99214; J1100; J2795; J3301; L1812 ==

== ENCOUNTER → 2024-05-19 14:42 | Outpatient (BNVA) | payer MEDICARE, OTHER, SELFPAY | PROVIDERS: PCP Registered Nurse; Visit Provider Nurse Practitioner | DX: M70.62 Trochanteric bursitis, left hip (principal); M16.12 Unilateral primary osteoarthritis, left hip | CPT/HCPCS: 20610; 73502; 99214; J1100; J2795; J3301 ==